=== PATIENT | male | born 1945 | race Caucasian/White ===

== ENCOUNTER 2023-11-05 12:02 | Emergency (ER) | payer BC, SELFPAY ==
[2023-11-05] VITALS (9 sets, daily range): BP systolic 128–148; BP diastolic 69–102; BMI 29.4
[2023-11-05 12:47] LABS: % Eosinophils 1.3 % (0-6); % Immature Granulocytes 1.1 % (0-0.5); % Lymphocytes 22.7 % (20.5-51.1); % Monocytes 9.4 % (1.7-9.3); % Neutrophils 64.5 % (42.2-75.2); Absolute Basophils 0.1 10^3/uL (0-0.2); Absolute Eosinophils 0.1 10^3/uL (0-0.7); Absolute Immature Granulocytes 0.1 10^3/uL (0-0.05); Absolute Lymphocytes 1.4 10^3/uL (1.2-3.4); Absolute Monocytes 0.6 10^3/uL (0.1-0.6); Absolute Neutrophils 4.1 10^3/uL (1.4-6.5); Hematocrit 41.9 % (39.0-52.0); Hemoglobin 14.1 g/dL (13.0-18.0); Mean Corp Hgb Conc. 33.7 g/dL (33.0-37.0); Mean Corpuscular Hgb 29.9 pg (27.0-31.0); Mean Platelet Volume 9.1 fL (7.4-10.4); Nucleated Red Blood Cells % 0 % (-); Platelet Count 241 10^3/uL (130-400); Red Blood Cell Count 4.71 10^6/uL (4.70-6.10); Red Cell Dist. Width 12.8 % (11.5-14.5); White Blood Cell Count 6.3 10^3/uL (4.8-10.8)
[2023-11-05 13:07] LABS: INR 1.13; PT 14.3 Sec (11.4-14.6)
[2023-11-05 13:08] LABS: APTT 27.9 Sec (23.4-35.0)
[2023-11-05 13:11] LABS: ALT (SGPT) 26 U/L (0-50); AST (SGOT) 31 U/L (17-59); Albumin 3.9 g/dl (3.5-5.0); Alkaline Phosphatase 88 U/L (38-126); Blood Urea Nitrogen 15 mg/dl (9-20); Calcium 8.8 mg/dl (8.4-10.2); Carbon Dioxide 25 mmol/L (22-30); Chloride 110 mmol/L (98-107); Glucose 100 mg/dl (70-99); Magnesium 2.2 mg/dl (1.6-2.3); Potassium 4.7 mmol/L (3.5-5.1); Sodium 142 mmol/L (135-145); Total Bilirubin 0.8 mg/dl (0.2-1.3); Total Protein 6.8 g/dl (6.3-8.2); eGFR > 60.00
[2023-11-05 13:19] LABS: Troponin I < 0.012 ng/ml
--- NOTE | 2023-11-05 13:35 | ED.GENMED ---
History of Present Illness
General
Chief Complaint: Cardiac Symptoms
Source: patient
Exam Limitations: none
Time Seen by Provider: 11/05/23 13:01
Nursing documentation reviewed up to this point in time: agreed with
Travel History
Have you had any contact with someone who has COVID-19?: No
Do you have any symptoms of coronavirus? Fever > 100 degrees, chills, cough, shortness of breath, sore throat, loss of taste or smell, muscle aches, or headache?: No
History of Present Illness
History of Present Illness:
78-year-old male presents to the ER for evaluation after AICD fired. Patient reports at 11 AM he was sitting at the meeting felt lightheaded and then apparently passed out but woke up after being shocked. He called his doctor who recommended he
come to the ER. He was brought by son. He presently feels tired but has no other complaint he has a [employer] [employer] AICD he is followed by Dr. Mckeon .
Patient presently arrives awake alert no acute distress.
Patient has a history of cardiomyopathy and as documented does have a dual-chamber ICD placement([facility]) 07/28/2020.
Patient does report however that he did feel lightheaded 2 weeks ago but did not get shocked and did not pass out. He also reports he missed 2 doses of his medication (coreg and entresto ) over the weekend but is not exactly sure which meds he
missed.
Paperwork was sent from cardiology pacemaker was interrogated with visible V-fib. Time to AICD diagnosis was 3.5 sec.
Past History
Past History
ED Past Medical History: HTN (Takes Coreg 12.5 twice a day), Hypercholesterolemia (Takes Cozaar 25 mg daily) and Other (Cardiomyopathy, V. tach with ICD)
ED Past Surgical History: None and Cardiac
Social History
Tobacco: Non-smoker
Alcohol: None
Personal:
Living: with family
Employment: Employed
Family History
Family History: Other
Review of Systems
Review of Systems
Allergies reviewed?: Yes
All Other Systems: ROS reviewed and negative except as documented in HPI and ROS
Constitutional: Reports no symptoms
Respiratory: Denies trouble breathing
Cardiac: Reports syncope
ABD/GI: Reports no symptoms
: Reports no symptoms
Musculoskeletal: Reports no symptoms
Skin: Reports no symptoms
Neurological: Reports no symptoms
Psychiatric: Reports no symptoms
Phy Exam
General Physical Exam
General Presentation: no apparent distress
General age: appears stated age
General Skin: warm and dry
General Habitus: normal
General Mental: alert
General Hydration: appears well hydrated
Cardiovascular Exam
Cardiovascular Exam: bradycardia
Pulmonary Exam
Pulmonary Exam: lungs clear and no respiratory distress
Neurological Exam
Neurological Exam: alert and oriented x3
Musculoskeletal Exam
Musculoskeletal Exam: full ROM
Skin Exam
Skin Exam: normal color and warm/dry
Psychiatric Exam
Psychiatric Exam: normal mood/affect
Course
Orders/Labs/Results
Orders:
Orders
11/05/23 12:11
ECG [Electrocardiogram (*1)] Urgent
Reason for Study: Syncope
Other Reason for Exam: AICD fired
EKG- Treatment ONCE
11/05/23 12:27
Complete Blood Count/With Diff Urgent
Comprehensive Metabolic Panel Urgent
Magnesium Urgent
PT/INR [Prothrombin Time] Urgent
PTT Urgent
Troponin I Urgent
11/05/23 15:24
Add On- LAB Urgent
Tests Added?: magnesium
11/05/23 16:03
Amiodarone [Pacerone] 400 mg PO NOW STA
Abnormal Lab Results
11/05/23
12:27
Abs Immat Gran (auto) 0.1 H 10^3/uL
(0-0.05)
Immature Gran % 1.1 H %
(0-0.5)
Monocytes % 9.4 H %
(1.7-9.3)
Chloride 110 H mmol/L
(98-107)
Glucose 100 H mg/dl
(70-99)
11/05/23 12:27
11/05/23 12:27
Vital Signs
Initial and Last Documented VS:
Initial Vital Signs
Temp Pulse Resp BP Pulse Ox
97.5 F 56 16 148/79 100
11/05/23 12:07 11/05/23 12:07 11/05/23 12:07 11/05/23 12:07 11/05/23 12:07
Last Documented Vital Signs
Temp Pulse Resp BP Pulse Ox
97.5 F 57 14 146/79 99
11/05/23 12:07 11/05/23 16:56 11/05/23 14:30 11/05/23 16:56 11/05/23 14:46
Electric Meter Setter consulted with Physician
Electric Meter Setter consulted with physician?: Yes
Name of Physician Consulted: Genaro
MDM/Problems Addressed
MDM/Problems Addressed:
1525:Patient is a 78-year-old male with history of cardiomyopathy CHF AICD presents after syncopal episode and AICD firing. Pacemaker was interrogated prior to arrival patient with obvious long V-fib. He presented awake alert no acute distress.
Patient has remained in sinus bradycardia in the high 50s here in the ER with no complaints. Labs unremarkable. At this time cardiology nurse practitioner evaluated patient
1600: Patient was evaluated by Dr. Cardona who recommends giving 1 dose of amiodarone 400 mg now and then patient to be discharged on 200 mg twice a day for 1 month then once daily. Dr. Cardona did want additional dose of 200 mg this evening.
Patient was educated to take another dose later tonight
*Critical Care Note
Total Time (30-74mins, 75-104mins- exclusive of procedures): Not Applicable
Patient Management
Discussion with other providers: Shop Supervisor (DR Cardona )
ED Attending Note
-
Portions of this chart may have been created with voice recognition software.� Occasional wrong word or��sound alike� substitutions may have occurred due to the inherent limitations of voice recognition software.
Discharge Plan
Departure
Patient Disposition: Home (Routine Discharge)
Date of Disposition: 11/05/23
Time of Disposition: 17:31
Patient with high blood pressure during this ER visit?: Yes
Condition: Fair
Covid-19: Not Applicable
Discharge Problem:
Ventricular fibrillation
Instructions: BLOOD PRESSURE
Prescriptions:
No Action
carvedilol 12.5 MG tablet
12.5 mg PO BID
coenzyme Q10 [Co Q-10] 100 MG capsule
100 mg PO DAILY
amiodarone [Pacerone] 200 MG tablet
200 mg PO BID Qty: 60 0RF
Rx Instructions:
take amiodarone 200mg twice daily for 4 weeks then decrease to 200mg daily
amiodarone [Pacerone] 200 MG tablet
200 mg PO DAILY Qty: 30 5RF
Rx Instructions:
take amiodarone 200mg twice daily for 4 weeks then decrease to 200mg daily
Referrals:
Lizzie Bird CRNP [Specified Professional Personl] - 12/02/23 11:00 am (You have cardiology follow up with Lizzie Bird on December 01 at 11 am in [address] in the [place]. If you are unable to maker this please call [phone] to reschedule)
Henri Haskins, [Family Provider] -
Karen Mckeon MD [Active] -
Activity Restrictions/Additional Instructions:
You are scheduled for an echo on November 26 at 7:20 AM at [facility]. Please report to central scheduling to register. If you are unable to make this appointment please call [phone] to reschedule.
Start amiodarone as directed. take 200 mg this evening.
These medications were sent to your pharmacy. You will take 200 mg twice a day for 4 weeks then decrease to 200 mg once daily .follow-up with cardiology as scheduled return if any worsening of symptoms.
Interventions
Interventions:
*Risk Screen - Suicide Last Done: 11/05/23 13:48
*General Assessment Last Done: 11/05/23 13:48
*Neglect/Abuse Screening Last Done: 11/05/23 13:48
ED- Fall Risk Assessment Last Done: 11/05/23 13:51
*ED COVID-19 Vaccine History Last Done: 11/05/23 13:48
ED- Pulmonary Assessment Last Done: 11/05/23 14:46
ED- Cardiac Assessment Last Done: 11/05/23 13:50
Discharge Date and Time
Print Language: UKRAINIAN
--- NOTE | 2023-11-05 15:32 | CON.CAR ---
Addendum entered and electronically signed by Faizan Cardona MD 11/05/23 16:32:
patient seen and examined
agree with DANNY Barone's notes and assessment
agree with DANNY Barone's plan
exam:
heent ncat
jvp 6
cor regular
lungs ctab
abd soft nt nd
no ext edema
aao x3
non focal neurologically
Impression:
Presented 11/05/2023 with syncopal episode
Appropriate ICD shock for ventricular tachycardia that progressed into ventricular fibrillation
Nonischemic cardiomyopathy
Nonobstructive coronary artery disease
Syncope
Ventricular tachycardia
s/p dual-chamber [employer] ICD 07/28/2020
Hypertension
Echocardiogram 09/04/2022: ejection fraction 40 to 45%. Mild LVH. Normal RV. Mild MR. Trace AI. Trace TR with PA pressure 27 mmHg.
Echocardiogram 06/28/2021: EF 40 to 45%, global hypokinesis. Stage I DD. PAP 22 mmHg.
Echocardiogram 01/03/2021: EF 35 to 40%, previously 45%. Mild septal hypertrophy. Stage I diastolic dysfunction. Mild MR. PAP 31 mmHg
Cardiac catheterization 07/27/2020 with nonobstructive coronary disease.
Cardiac MRI 07/28/2020 which revealed a small focus of transmural enhancement in the inferior septum suggesting the possibility of possible old scar. Ejection fraction was 35%.
Plan:
-Presented 11/05/2023 with syncopal episode secondary to ventricular tachycardia that progressed into ventricular fibrillation and appropriate ICD shock.
-This was first time patient has received ICD therapy.
-Workup in the emergency department shows unremarkable laboratory findings with normal electrolytes (K+ 4.7, mag 2.2), hgb, renal and kidney function.
-EKG shows sinus bradycardia without ischemic changes. Initial troponin undetectable.
-Admits to forgetting to take his a.m. medication for 2 days on 11/01/2023 and 11/02/2023.
-Patient without any concerning cardiac complaints and denies chest pain, shortness of breath, dizziness or lightheadedness
-Would increase amiodarone to 200 mg twice a day for 4 weeks. Reviewed his device tracings and initiation and PMVT and degenerated to VF with rapid ATP.
-Continue current dose of carvedilol and Entresto
-Last echocardiogram performed in September 2022. Would consider repeating this as outpatient.
-Discussed with patient and his family he should not drive for a minimum of 4 weeks. Can be reassessed as outpatient if no additional ventricular arrhythmias on timing of when resuming driving
Original Note:
Consultation
Consultation Request
Date/Time Consultation Requested: 11/05/2023
Date/Time Consultation Performed: 11/05/2023
Requesting Provider: Leatha Alexander
Performing Provider: Rosemary Barone PA-C for Dr. Faizan Cardona
Reason for Consultation: Ventricular tachycardia/ICD shock
Medical History
-
History of Present Illness:
Patient is a 78-year-old male with past medical history significant for nonischemic cardiomyopathy, nonobstructive coronary artery disease on cardiac catheterization, syncope with finding of ventricular tachycardia maintained on amiodarone, status
post dual-chamber ICD who presents to emergency department 11/05/2023 with witnessed syncopal event secondary to ventricular tachycardia which progressed into ventricular fibrillation requiring ICD shock. He reports he was sitting at a meeting today
and got very agitated then developed lightheadedness and a syncopal episode. Staff members around him reports he slumped over then got jolted and woke up rather quickly following this. He admitted feeling somewhat lethargic and tired initially but
denied associated chest pain shortness of breath, palpitations. He admits that he forgot to take his a.m. medications on Saturday and Saturday. Over the weekend he was very active working in the yard and garden without chest pain or shortness of
breath. Interrogation of his ICD demonstrates ventricular tachycardia that progressed into ventricular fibrillation and was refractory to ATP. He did once he received 1 shock with successful evangelical of sinus rhythm. Workup in the emergency
department shows rather unremarkable laboratory studies with potassium of 4.7, magnesium 2.2. Troponin negative. EKG shows sinus bradycardia. At time of this evaluation patient resting comfortably in bed and denies any cardiac symptoms.
PMH:
Nonischemic cardiomyopathy
Nonobstructive coronary artery disease
Syncope
Ventricular tachycardia
s/p dual-chamber [employer] ICD 07/28/2020
Hypertension
Past Medical History
Past Medical History: Other (See HPI)
Past Surgical History: Cardiac (Dual-chamber [employer] ICD implant 07/27/2020) and Other (Endoscopy 2017)
Social History
Tobacco: Non-Smoker
Alcohol: None
Drug: None
Personal:
Living: With Family
Employment: Employed
Family History
Family History: Other (Father prostate cancer, CAD. Mother stroke, hypertension)
Allergies / Home Medications
Allergy/AdvReac Type Severity Reaction Status Date / Time
codeine Allergy Intermediate confusion Verified 02/06/23 11:11
�Medication �Instructions �Recorded �Confirmed �Type
carvedilol 12.5 mg tablet 12.5 mg PO BID 12/17/15 07/27/20 History
coenzyme Q10 100 mg capsule (Co 100 mg PO DAILY 07/27/20 07/27/20 History
Q-10)
amiodarone 200 mg tablet (Pacerone) 200 mg PO BID #60 tabs 07/29/20 Rx
amiodarone 200 mg tablet (Pacerone) 200 mg PO DAILY #30 tabs 07/29/20 Rx
Review of Systems
-
History Source: Patient
All other systems: Negative unless noted
Physical Exam
Vital Signs
Temp Pulse Resp BP Pulse Ox
97.5 F 53 14 129/69 99
11/05/23 12:07 11/05/23 14:30 11/05/23 14:30 11/05/23 14:00 11/05/23 14:46
GEN: No distress, awake, Ox3
HEENT: supple, anicteric, mmm
LUNGS: CTA, no wheezes/rales
CV: Reg, S1/S2, no murmur, rub or gallop
ABD: soft, BS+, NT/ND
EXT: No edema, clubbing or cyanosis
NEURO: Gross non-focal
SKIN: No rash, warm, dry, pink
Lab Results
11/05/23 12:27
11/05/23 12:27
Troponin I < 0.012 ng/ml 11/05/23 12:27
Impression / Plan
-
PCP: Henri Haskins
Manager Title: Dr. Karen Mckeon
Impression:
Presented 11/05/2023 with syncopal episode
Appropriate ICD shock for ventricular tachycardia that progressed into ventricular fibrillation
Nonischemic cardiomyopathy
Nonobstructive coronary artery disease
Syncope
Ventricular tachycardia
s/p dual-chamber [employer] ICD 07/28/2020
Hypertension
Echocardiogram 09/04/2022: ejection fraction 40 to 45%. Mild LVH. Normal RV. Mild MR. Trace AI. Trace TR with PA pressure 27 mmHg.
Echocardiogram 06/28/2021: EF 40 to 45%, global hypokinesis. Stage I DD. PAP 22 mmHg.
Echocardiogram 01/03/2021: EF 35 to 40%, previously 45%. Mild septal hypertrophy. Stage I diastolic dysfunction. Mild MR. PAP 31 mmHg
Cardiac catheterization 07/27/2020 with nonobstructive coronary disease.
Cardiac MRI 07/28/2020 which revealed a small focus of transmural enhancement in the inferior septum suggesting the possibility of possible old scar. Ejection fraction was 35%.
Plan:
-Presented 11/05/2023 with syncopal episode secondary to ventricular tachycardia that progressed into ventricular fibrillation and appropriate ICD shock.
-This was first time patient has received ICD therapy.
-Workup in the emergency department shows unremarkable laboratory findings with normal electrolytes (K+ 4.7, mag 2.2), hgb, renal and kidney function.
-EKG shows sinus bradycardia without ischemic changes. Initial troponin undetectable.
-Admits to forgetting to take his a.m. medication for 2 days on 11/01/2023 and 11/02/2023.
-Patient without any concerning cardiac complaints and denies chest pain, shortness of breath, dizziness or lightheadedness
-Would increase amiodarone to 200 mg twice a day for 4 weeks.
-Continue current dose of carvedilol and Entresto
-Last echocardiogram performed in September 2022. Would consider repeating this as outpatient.
-Discussed with patient and his family he should not drive for a minimum of 4 weeks. Can be reassessed as outpatient if no additional ventricular arrhythmias on timing of when resuming driving
[facility] 11/05/2023:
Patient is a 78-year-old male with past medical history significant for nonischemic cardiomyopathy, nonobstructive coronary artery disease on cardiac catheterization, syncope with finding of ventricular tachycardia maintained on amiodarone, status
post dual-chamber ICD who presents to emergency department 11/05/2023 with witnessed syncopal event secondary to ventricular tachycardia which progressed into ventricular fibrillation requiring ICD shock. He reports he was sitting at a meeting today
and got very agitated then developed lightheadedness and a syncopal episode. Staff members around him reports he slumped over then got jolted and woke up rather quickly following this. He admitted feeling somewhat lethargic and tired initially but
denied associated chest pain shortness of breath, palpitations. He admits that he forgot to take his a.m. medications on Saturday and Saturday. Over the weekend he was very active working in the yard and garden without chest pain or shortness of
breath. Interrogation of his ICD demonstrates ventricular tachycardia that progressed into ventricular fibrillation and was refractory to ATP. He did once he received 1 shock with successful evangelical of sinus rhythm. Workup in the emergency
department shows rather unremarkable laboratory studies with potassium of 4.7, magnesium 2.2. Troponin negative. EKG shows sinus bradycardia. At time of this evaluation patient resting comfortably in bed and denies any cardiac symptoms.
Data Reviewed
-
EKG: Report Reviewed by me, Discussed with Physician, Discussed with Patient and Discussed with Family
Labs: Labs Reviewed by me, Discussed with Physician, Discussed with Patient and Discussed with Family
Old Records: Reviewed
[2023-11-05] MEDS: PACERONE 400 MG PO (16:56)
== END 2023-11-05 18:25 | disposition home or self-care (01) ==
LOC: EMR 12:02
PROVIDERS: Emergency Medicine; EMERGENCY PHYSICIAN Student in an Organized Health Care Education/Training Program; FAMILY PHYSICIAN Family Medicine
DX: I49.01 Ventricular fibrillation (principal); Z95.810 Presence of automatic (implantable) cardiac defibrillator; I11.0 Hypertensive heart disease with heart failure; I50.9 Heart failure, unspecified; I25.10 Atherosclerotic heart disease of native coronary artery without angina pectoris; I42.8 Other cardiomyopathies; I47.20 Ventricular tachycardia, unspecified; E78.00 Pure hypercholesterolemia, unspecified; Z82.3 Family history of stroke; Z82.49 Family history of ischemic heart disease and other diseases of the circulatory system
CPT/HCPCS: 99283; 80053; 83735; 84484; 85025; 85610; 85730; 93005

== ENCOUNTER → 2023-11-13 14:50 | Outpatient (REF) | payer BC, SELFPAY | LOC: RCS 14:50 | PROVIDERS: ATTENDING PHYSICIAN Internal Medicine Cardiovascular Disease; FAMILY PHYSICIAN Family Medicine | DX: I49.01 Ventricular fibrillation (principal) | CPT/HCPCS: 93306 ==

== ENCOUNTER 2024-03-11 08:18 | Day surgery (SDC) | payer BC, SELFPAY ==
[2024-03-05 10:06] VITALS: BMI 31.0
[2024-03-05 10:43] LABS: % Basophils 0.7 % (0-2); % Eosinophils 1.3 % (0-6); % Immature Granulocytes 1.1 % (0-0.5); % Lymphocytes 18.4 % (20.5-51.1); % Monocytes 8.3 % (1.7-9.3); % Neutrophils 70.2 % (42.2-75.2); Absolute Basophils 0.1 10^3/uL (0-0.2); Absolute Eosinophils 0.1 10^3/uL (0-0.7); Absolute Immature Granulocytes 0.1 10^3/uL (0-0.05); Absolute Lymphocytes 1.3 10^3/uL (1.2-3.4); Absolute Monocytes 0.6 10^3/uL (0.1-0.6); Absolute Neutrophils 4.9 10^3/uL (1.4-6.5); Hematocrit 38.9 % (39.0-52.0); Hemoglobin 13.6 g/dL (13.0-18.0); Mean Corpuscular Hgb 30.1 pg (27.0-31.0); Mean Corpuscular Volume 86.1 fL (80.0-94.0); Mean Platelet Volume 8.9 fL (7.4-10.4); Nucleated Red Blood Cells % 0 % (-); Platelet Count 245 10^3/uL (130-400); Red Blood Cell Count 4.52 10^6/uL (4.70-6.10); Red Cell Dist. Width 12.6 % (11.5-14.5)
[2024-03-05 10:59] LABS: INR 1.04; PT 13.6 Sec (11.4-14.6)
[2024-03-05 11:13] LABS: ALT (SGPT) 29 U/L (0-50); AST (SGOT) 29 U/L (17-59); Albumin 3.9 g/dl (3.5-5.0); Alkaline Phosphatase 85 U/L (38-126); Blood Urea Nitrogen 14 mg/dl (9-20); Calcium 9.1 mg/dl (8.4-10.2); Carbon Dioxide 22 mmol/L (22-30); Chloride 108 mmol/L (98-107); Estimated Creatinine Clearance 77 ml/min; Glucose 104 mg/dl (70-99); Potassium 4.4 mmol/L (3.5-5.1); Sodium 143 mmol/L (135-145); Total Bilirubin 0.7 mg/dl (0.2-1.3); Total Protein 6.7 g/dl (6.3-8.2); eGFR > 60.00
[2024-03-11] VITALS (12 sets, daily range): BP systolic 107–142; BP diastolic 67–82; BMI 31.0
[2024-03-11 12:29] LABS: ACT-LR - POC 295 Seconds (116-155)
[2024-03-11 12:53] LABS: ACT-LR - POC 271 Seconds (116-155)
[2024-03-11 13:41] LABS: ACT-LR - POC 335 Seconds (116-155)
[2024-03-11 14:16] LABS: ACT-LR - POC 208 Seconds (116-155)
[2024-03-11 14:24] LABS: ACT-LR - POC 141 Seconds (116-155)
--- NOTE | 2024-03-11 14:55 | ITS.CL.ABL ---
Enrobing Machine Operator - Ablation
Ablation
Procedure Report:
ELECTROPHYSIOLOGY ABLATION REPORT
Date of Procedure: March 11, 2024
Referring:
Dr Karen Mckeon
Dr Henri Haskins
INDICATION:
Sustained monomorphic VT while on amiodarone and in the setting of noninfarct related cardiomyopathy.
While no sustained VT has been captured on twelve-lead electrocardiogram, review of multiple EKGs available in our systems so rare single PVC suggestive of outflow tract origin.
HISTORY:
Most recently, on 11/05/2023, he sustained syncope secondary to VT which�progressed to VF, treated with appropriate ICD shock.
His ventricular arrhythmia history started in July 2020. He was admitted 07/27/20 after outpatient monitor showed sustained self terminating VT associated with dizziness�
During his hospital stay there were no significant lab abnormalities, ECHO 2020 with LVEF 35-40%, Cardiac catheterization 07/27/2020 with nonobstructive coronary disease.
Cardiac MRI 07/28/2020 small focus of transmural enhancement in the inferior basal septum suggesting the possibility of possible old scar. LVEF 35%.
He underwent implantation of single chamber [employer] ICD 07/28/2020.
Additionally, in�Jul 2020 he was initiated then maintained on�amiodarone 200 mg daily.
Given the recurrent event on November 05, 2023,�Amiodarone increased to� 200 mg twice daily from 11/04-12/05 23, then reduced back to 200 mg daily
Echo 11/13/23 with EF 40-45% with global hypokinesis�(no change from 09/04/22). Mild MR. PAP 24�mmHg.
He presents today for EP study and possible catheter ablation of ventricular tachycardia.
PROCEDURE:
The [employer] medical/[employer] dual chamber ICD was interrogated and found to have normal stable function. VT/VF detections were programmed OFF. Additional programming changes included changing base pacing rate from 60-80 and shortening AV intervals
to more reliably result in paced ventricular complexes.
Sheaths were placed and IV heparin bolus followed by continuous infusion to maintain ACT at 250-350 seconds.
Intracardiac echocardiogram was utilized to assist in catheter positioning/mapping and ablation as well as to monitor for any mechanical injury during the procedure.
A quadripolar mapping catheter was positioned at the right ventricular apex.
Given the location of the MRI abnormality there is concern for substrate abnormality in the area of the the RV/LV crux a decapolar catheter was placed in the prox coronary sinus extending into the middle cardiac vein.
The multipolar mapping catheter was positioned within the LV cavity using a retrograde aortic approach.
Extensive high density electroanatomical three-dimensional voltage map/geometry was collected and created using ZE. This demonstrated no significant voltage for conduction abnormalities within the left ventricle.
Programmed electrical stimulation up to triple extrastimuli at 2 different base paced cycle lengths induced nonsustained monomorphic VT at 440 ms with left bundle inferior axis and precordial transition at lead V3, positive in lead fully positive in
lead I and fully negative in lead aVR. With continued attempts at induction mapping within the left ventricle finds that the left ventricle is late. Additionally mapping at the aortic cusps finds that the aortic cusps are also late. VT morphology
is most consistent with outflow tract and likely right ventricular outflow tract given that the left ventricular outflow tract and aortic cusps are late. Ventricular electrograms on the decapolar catheter at the base of the coronary sinus and
extending into the middle cardiac vein are also late.
Of note, with aggressive programmed electrical stimulation additional pleomorphic nonsustained runs of ventricular tachycardia as well as sustained polymorphic ventricular tachycardia requiring electrical cardioversion could be induced. It is felt
that it is likely that his clinical tachycardia is RVOT origin. Therefore high density electroanatomical mapping using the [employer] grid catheter was performed at the right ventricular outflow tract, but induction remained difficult with mostly short
runs of nonsustained VT. Pace mapping was then attempted. Best pace map is an 87% match at the right ventricular outflow tract leftward and slightly anterior approximately 1 cm below the pulmonic valve. RF application using 4 mm contact sensing
irrigated tip catheter was performed in and around the area of the best pace map. Once this was completed the ablation catheter was moved to the aortic cusps for further pace mapping but pace mapping at the aortic cusps was not as good of a match
as was observed at the right ventricular outflow tract (best aortic cusp pace map is at the right coronary cusp at 72%).
Intracardiac echocardiogram demonstrated stable left ventricular systolic function and no pericardial effusion.
Fluoroscopy demonstrated no fluoroscopic change in the appearance of the right atrial pacing lead in the right ventricular ICD lead
The dual-chamber ICD was interrogated and found to have stable normal function. Reprogramming was performed. Detection was programmed on. Base pacing rate was reprogrammed to 65 ppm and both paced and sensed AV intervals were extended to 300 ms.
Additionally I reprogrammed VT zone ATP extending the number of intervals to detect from 30-40, changing burst cycle length from 80% to 88% and increasing number of stimuli from 10-12.
COMPLICATIONS: None
SUMMARY:
Mapping and ablation of ventricular tachycardia
- Extensive high density mapping of the left ventricle, aortic cusps, right ventricular outflow tract finds no significant voltage abnormalities
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
- Interrogation and reprogramming of dual-chamber ICD
RECOMMENDATIONS:
Maintain amiodarone at 200 mg daily
- While the clinical ventricular tachycardia is likely the RVOT VT, he was also inducible repeatedly for pleomorphic VT and even VF. This along with his background cardiomyopathy favors continuing amiodarone.
Copy to:
Dr Karen Mckeon
Dr Henri Haskins
--- NOTE | 2024-03-11 16:07 | CM ---
Chart reviewed. Patient is independent of ADLS, lives with his in a 2 STH, 1 TARYN, 0 DME. Plan is for the patient to return home. CM to follow
[2024-03-11] MEDS: PACERONE 200 MG PO (19:44)
[2024-03-11] MEDS: COREG 12.5 MG PO (19:44)
--- NOTE | 2024-03-11 21:27 | PTCARENOTE ---
Received patient at shift change. A paced on the monitor, HR in the 60s. Bilateral groin dressings CDI with no evidence of hematoma. Discussed activity restrictions with pt, pt verbalizes understanding. No complaints from pt at this time, call moffett
within reach.
[2024-03-12 03:04] VITALS: BP 96/67
[2024-03-12 04:05] LABS: Blood Urea Nitrogen 12 mg/dl (9-20); Calcium 8.4 mg/dl (8.4-10.2); Carbon Dioxide 25 mmol/L (22-30); Chloride 108 mmol/L (98-107); Estimated Creatinine Clearance 77 ml/min; Glucose 97 mg/dl (70-99); Magnesium 1.9 mg/dl (1.6-2.3); Potassium 4.2 mmol/L (3.5-5.1); Sodium 143 mmol/L (135-145); eGFR > 60.00
[2024-03-12 06:00] VITALS: BMI 30.3
[2024-03-12 06:34] LABS: Hemoglobin 12.7 g/dL (13.0-18.0); Mean Corp Hgb Conc. 34.3 g/dL (33.0-37.0); Mean Corpuscular Hgb 30.1 pg (27.0-31.0); Mean Corpuscular Volume 87.7 fL (80.0-94.0); Mean Platelet Volume 9.5 fL (7.4-10.4); Platelet Count 224 10^3/uL (130-400); Red Blood Cell Count 4.22 10^6/uL (4.70-6.10); White Blood Cell Count 8.7 10^3/uL (4.8-10.8)
[2024-03-12 07:02] VITALS: BP 118/68
[2024-03-12] MEDS: COREG 12.5 MG PO (08:15)
--- NOTE | 2024-03-12 08:38 | PTCARENOTE ---
Assumed care of pt from prev nsg shift AAOx3 w/no c/o CP or SOB. VS stable this AM w/HR in the 60's & BP 118/68. Pt is A-paced on telemetry monitoring. Pt w/bilat groin access sites w/dressings C/D/I w/no signs or symptoms of bleeding or hematoma.
Pt anticipating D/C this AM. Pt w/call moffett within reach & no addtl needs at this time. Plan of care ongoing.
[2024-03-12] MEDS: ENTRESTO 24 MG/26 MG 1 TAB PO (09:44)
--- NOTE | 2024-03-12 09:46 | W.PN.CARDCBS ---
Addendum entered and electronically signed by Henri Mckeon MD 03/12/24 11:09:
Patient seen, interviewed and examined by me.
Well-appearing, no acute distress
Regular rate and rhythm with normal S1 and S2, no S3 no S4. There is a grade 1/6 apical holosystolic murmur and no rubs. PMI is normally placed.
Lungs are clear to auscultation bilaterally without wheezes rales or rhonchi.
Abdomen soft nontender nondistended with normoactive bowel sounds
Extremities show trace pretibial edema bilaterally no clubbing or cyanosis. Bilateral groins without hematoma or bruits
Neurologic exam is grossly nonfocal.
He remains in sinus rhythm on telemetry.
reviewed findings and results from yesterday's EP study and ablation were outlined that we mapped left ventricle, aortic cusps, right ventricular outflow tract and found no significant signal/electrical abnormalities. Induction diagnosed outflow
tract tachycardia. Ventricular tachycardia was self terminating making mapping of VT focus difficult and I relied mostly on pace mapping to identify likely site at the right ventricular outflow tract which we ablated. I discussed with the patient
that the certainty with which I feel I eliminated his clinical tachycardia is not high but certainly possible. I recommended that we continue amiodarone at 200 mg daily as we follow device diagnostics. If there are no further ventricular
arrhythmias over the course of the next 6 months we could consider dropping amiodarone from 200 mg daily to 100 mg daily.
All of his questions have been answered.
I reviewed discharge instructions including activity restrictions.
He is stable for discharge to home today.
Original Note:
Today's Communication / Plan
-
post VT ablation, stable for d/c home
Impression / Plan
-
Primary oil field tester: Dr Karen Mckeon
Primary care physician: Dr Henri Haskins
Impression:
Symptomatic VT/VF
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
ICD 2020
HTN
HLD
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
NICMP
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
Plan:
post ablation feels good
groins stable
tele Apaced
HF continue carvedilol and entresto
During the procedure he was also inducible repeatedly for pleomorphic VT and even VF, we will continue amiodarone 200mg daily
Activity restrictions reviewed
f/u Dr. Garcia 3 mo
stable for d/c home today
Progress Note - Sec Accountant
Subjective
Date of Service: March 12, 2024
denies cp, sob
Objective
Labs:
03/12/24 03:26
03/12/24 03:26
Labs
Hgb 12.7 g/dL (13.0-18.0) L 03/12/24 03:26
Hct 37.0 % (39.0-52.0) L 03/12/24 03:26
Plt Count 224 10^3/uL (130-400) 03/12/24 03:26
PT 13.6 Sec (11.4-14.6) 03/05/24 10:30
INR 1.04 03/05/24 10:30
Sodium 143 mmol/L (135-145) 03/12/24 03:26
Potassium 4.2 mmol/L (3.5-5.1) 03/12/24 03:26
BUN 12 mg/dl (9-20) 03/12/24 03:26
Creatinine 0.8 mg/dL (0.7-1.3) 03/12/24 03:26
Glucose 97 mg/dl (70-99) 03/12/24 03:26
Vital Signs and I&O:
Vital Signs
Temp Pulse Resp BP Pulse Ox
97.8 F 65 18 118/68 97
03/12/24 06:59 03/12/24 09:00 03/12/24 06:59 03/12/24 07:02 03/12/24 07:02
Vital Signs
Temp Pulse Resp BP Pulse Ox
97.8 F 65 18 118/68 97
03/12/24 06:59 03/12/24 09:00 03/12/24 06:59 03/12/24 07:02 03/12/24 07:02
Intake & Output
03/10/24 03/11/24 03/12/24 03/13/24
06:59 06:59 06:59 06:59
Intake Total 740 / 740
Output Total 450 / 450
Balance 290 / 290
Physical Exam
Physical Exam
NAD, AOX3
S1, S2, RRR
CTAB, non labored
SNTND bsx4
b/l femoral sites c/d/i no HT, soft
--- NOTE | 2024-03-12 10:22 | PTCARENOTE ---
Discussed D/C instructions w/pt & spouse. Pt's IV line & media monitor D/C'd. Pt left w/personal belongings including cell phone, laptop & 2 chargers. Pt taken out via wheelchair by volunteer. Driven home by granddaughter.
--- NOTE | 2024-03-12 12:35 | W.DS.TRANS ---
DC Summary - Telephone Collector
-
Discharge Instructions:
Sleep Apnea Risk Intermediate
Discharge Diagnosis/Procedures VT post ablation
Diet Low Sodium
Driving Restrictions No driving for 24 hours
Instructions:
Stand-Alone Forms: DC Instructions- Cath/EP Lab
Changes to Home Medications: No
Discharge Medications:
DC Medications w/original date entered in [employer]
carvedilol 12.5 mg tablet 12.5 mg PO BID 12/17/15
coenzyme Q10 100 mg capsule (Co Q-10) 100 mg PO DAILY 07/27/20
amiodarone 200 mg tablet (Pacerone) 200 mg PO QPM #1 tab 03/12/24
sacubitril 24 mg-valsartan 26 mg tablet (Entresto) 1 tab PO BID 03/12/24
Home Medication Changes
Pending Results: No
== END 2024-03-12 10:25 | disposition home or self-care (01) ==
LOC: CATH 08:18
PROVIDERS: Nurse Practitioner Adult Health; ATTENDING PHYSICIAN Internal Medicine Cardiovascular Disease; FAMILY PHYSICIAN Family Medicine; OTHER PHYSICIAN Internal Medicine Cardiovascular Disease
DX: I47.20 Ventricular tachycardia, unspecified (principal); I49.01 Ventricular fibrillation; I11.0 Hypertensive heart disease with heart failure; I50.22 Chronic systolic (congestive) heart failure; E78.5 Hyperlipidemia, unspecified; I42.8 Other cardiomyopathies
CPT/HCPCS: C1732; C1894; C1730; C1769; C1892; C1759; 36415; 80048; 80053; 83735; 85025; 85027; 85347; 85610; 86850; 86900; 86901; 93005; 93654

== ENCOUNTER 2024-09-28 20:14 | Emergency (ER) | payer BC, SELFPAY ==
[2024-09-28 20:16] VITALS: BP 133/88
[2024-09-28 20:55] LABS: % Basophils 0.6 % (0-2); % Eosinophils 1.1 % (0-6); % Immature Granulocytes 0.9 % (0-0.5); % Lymphocytes 24.7 % (20.5-51.1); % Monocytes 11.5 % (1.7-9.3); % Neutrophils 61.2 % (42.2-75.2); Absolute Eosinophils 0.1 10^3/uL (0-0.7); Absolute Immature Granulocytes 0.1 10^3/uL (0-0.05); Absolute Lymphocytes 1.7 10^3/uL (1.2-3.4); Absolute Monocytes 0.8 10^3/uL (0.1-0.6); Absolute Neutrophils 4.3 10^3/uL (1.4-6.5); Hematocrit 40.4 % (39.0-52.0); Hemoglobin 13.8 g/dL (13.0-18.0); Mean Corp Hgb Conc. 34.2 g/dL (33.0-37.0); Mean Corpuscular Hgb 30.3 pg (27.0-31.0); Mean Corpuscular Volume 88.8 fL (80.0-94.0); Mean Platelet Volume 9.1 fL (7.4-10.4); Nucleated Red Blood Cells % 0 % (-); Platelet Count 255 10^3/uL (130-400); Red Blood Cell Count 4.55 10^6/uL (4.70-6.10); Red Cell Dist. Width 12.8 % (11.5-14.5); White Blood Cell Count 7.1 10^3/uL (4.8-10.8)
[2024-09-28 21:07] LABS: ALT (SGPT) 20 U/L (0-50); AST (SGOT) 21 U/L (17-59); Albumin 4.2 g/dl (3.5-5.0); Alkaline Phosphatase 84 U/L (38-126); Blood Urea Nitrogen 19 mg/dl (9-20); Calcium 9.4 mg/dl (8.4-10.2); Carbon Dioxide 26 mmol/L (22-30); Chloride 108 mmol/L (98-107); Glucose 91 mg/dl (70-99); Potassium 4.9 mmol/L (3.5-5.1); Sodium 142 mmol/L (135-145); Total Bilirubin 0.7 mg/dl (0.2-1.3); eGFR > 60.00
[2024-09-28 21:16] LABS: Troponin I < 0.012 ng/ml
[2024-09-28 22:33] VITALS: BP 131/86
--- NOTE | 2024-09-28 22:39 | ED.GENMED ---
History of Present Illness
General
Chief Complaint: Dizziness
Source: patient
Exam Limitations: none
Time Seen by Provider: 09/28/24 22:19
Nursing documentation reviewed up to this point in time: agreed with
History of Present Illness
History of Present Illness:
79-year-old male with past medical history as documented presents to the emergency room for evaluation of lightheadedness. Patient was working outside in the garden for a few hours today. When he finished working he was feeling lightheaded and has
been intermittently dizzy/lightheaded since. He did drink some water after ER arrival and says he feels a bit better now. He does admit to poor hydration today. He denies any associated chest pain or shortness of breath. He denies any
palpitations. He denies any headache. He denies any abdominal or flank pain. Denies any focal weakness or numbness or any other complaints. He follows with Dr. Mckeon for cardiology.
Past History
Past History
ED Past Medical History: HTN (Takes Coreg 12.5 twice a day), Hypercholesterolemia (Takes Cozaar 25 mg daily) and Other (Cardiomyopathy, V. tach with ICD)
ED Past Surgical History: None and Cardiac
Social History
Tobacco: Non-smoker
Alcohol: None
Personal:
Living: with family
Employment: Employed
Family History
Family History: Other
Review of Systems
Review of Systems
All Other Systems: ROS reviewed and negative except as documented in HPI and ROS
Constitutional: Denies fever
Respiratory: Denies trouble breathing
Cardiac: Denies chest pain
ABD/GI: Denies abdominal pain
: Denies flank pain
Neurological: Reports dizzy; Denies headache, weakness or numbness
Phy Exam
Physical Exam
Physical Exam:
General: Awake, alert, oriented x3; no acute distress
Head: Normocephalic, atraumatic
Eyes: Conjunctiva normal, EOMI, pupils equal round reactive to light bilaterally
Throat: Airway intact, handling secretions
Neck: Trachea midline, supple without meningismus
Lungs: Clear to auscultation bilaterally, no wheezing, rales, rhonchi
Heart: Regular rate and rhythm, no murmurs, gallops, or rubs; AICD in place
Abd: Soft, non distended, nontender with no palpable masses
Neuro: Cranial nerves intact 2 through 12, speech fluid without dysarthria or aphasia, no limb ataxia, motor and sensory intact in all extremities
Extremities: No edema in extremities, equal pulses in all extremities
Scores
Heart Failure Risk
Heart Failure Risk Score: Not Applicable
Heart Score for Chest Pain Patients
STEMI patient?: Not applicable
Withdrawal Assessment of Alcohol
Withdrawal Assessment Completed?: Not applicable
Course
Orders/Labs/Results
Orders:
Orders
09/28/24 20:17
ECG [Electrocardiogram (*1)] Urgent
Reason for Study: Vertigo / Dizzy
EKG- Treatment ONCE
09/28/24 20:30
Complete Blood Count/With Diff Urgent
Comprehensive Metabolic Panel Urgent
Troponin I Urgent
09/28/24 22:20
Interrogate Pacemaker- Treatment ONCE
Abnormal Lab Results
09/28/24
20:30
RBC 4.55 L 10^6/uL
(4.70-6.10)
Abs Immat Gran (auto) 0.1 H 10^3/uL
(0-0.05)
Absolute Monos (auto) 0.8 H 10^3/uL
(0.1-0.6)
Immature Gran % 0.9 H %
(0-0.5)
Monocytes % 11.5 H %
(1.7-9.3)
Chloride 108 H mmol/L
(98-107)
09/28/24 20:30
09/28/24 20:30
Vital Signs
Initial and Last Documented VS:
Initial Vital Signs
Temp Pulse Resp BP Pulse Ox
36.6 C 65 16 133/88 100
09/28/24 20:16 09/28/24 20:16 09/28/24 20:16 09/28/24 20:16 09/28/24 20:16
Last Documented Vital Signs
Temp Pulse Resp BP Pulse Ox
36.6 C 65 18 131/86 98
09/28/24 20:16 09/28/24 22:33 09/28/24 22:33 09/28/24 22:33 09/28/24 22:33
MDM/Problems Addressed
Differential Diagnosis Includes:
Dehydration, electrolyte derangement, dysrhythmia
MDM/Problems Addressed:
79-year-old male presents for evaluation of intermittent dizziness since working outside in the heat today. Vitals and exam as above. Suspect likely mild dehydration. He feels better after drinking some water here. His EKG shows a paced rhythm.
Labs sent in triage including CBC which shows no anemia, CMP which shows no clinically significant abnormalities. His troponin is undetectable�denies any chest pain at any point in time to me. Will interrogate device. If no events noted stable
for discharge advised to increase hydration when working outside.
Reviewed device interrogation�patient had 1 episode of NSVT lasted for 8 seconds on 09/21/2024. No other events noted, specifically no events today. Suspect likely some mild dehydration. Patient remains well-appearing and asymptomatic on
reassessment with normal vital signs. Stable for discharge. Spoke about return precautions all questions answered.
Chronic conditions affecting care:
Cardiac history
*Pulse Oximetry
Patient hypoxic: no
*EKG
Interpreted by ED Provider?: Yes
Heart Rate: 65
Rate: normal
Rhythm: other (Atrial paced)
*Critical Care Note
Total Time (30-74mins, 75-104mins- exclusive of procedures): Not Applicable
Data Reviewed
Review of Other/Old Records Reveals: Labs and Records
Source: patient, records and family
ED Attending Note
-
Portions of this chart may have been created with voice recognition software.� Occasional wrong word or��sound alike� substitutions may have occurred due to the inherent limitations of voice recognition software.
Discharge Plan
Departure
Patient Disposition: Home (Routine Discharge)
Date of Disposition: 09/28/24
Time of Disposition: 23:34
Patient with high blood pressure during this ER visit?: No
Discharge Problem:
Lightheadedness
Instructions: Dehydration in adults - ED discharge instructions
Prescriptions:
No Action
carvedilol 12.5 MG tablet
12.5 mg PO BID
coenzyme Q10 [Co Q-10] 100 MG capsule
100 mg PO DAILY
Entresto 24-26 mg Tablet
1 tab PO BID
amiodarone [Pacerone] 200 MG tablet
200 mg PO QPM Qty: 1 0RF
Activity Restrictions/Additional Instructions:
Thank you for visiting the Emergency Department at [facility].
1. Please schedule a follow up appointment as directed. Call first thing tomorrow morning to make an appointment.
2. If indicated, please take your medications as instructed and indicated on discharge paperwork.
3. If any of your symptoms do not improve, or persist, or become more severe within 6-12 hours, please return to the emergency department for further care.
4. Please return to the emergency department if you develop a headache, neck pain/stiffness, fever greater than 100.4F, chest pain, shortness of breath, persistent nausea, vomiting, slurred speech, difficulty walking, numbness/tingling, weakness,
signs of infection or any other symptoms that are worrisome to you.
Please call [phone] if you have any questions.
Interventions
Interventions:
*Risk Screen - Suicide Last Done: 09/28/24 20:16
*General Assessment Last Done: 09/28/24 20:16
*Neglect/Abuse Screening Last Done: 09/28/24 22:35
*ED- Fall Risk Assessment Last Done: 09/28/24 22:35
ED- Neurological Assessment Last Done: 09/28/24 22:34
Discharge Date and Time
Print Language: ROMANSH
== END 2024-09-28 23:56 | disposition home or self-care (01) ==
LOC: EMR 20:14
PROVIDERS: Emergency Medicine; EMERGENCY PHYSICIAN Emergency Medicine; FAMILY PHYSICIAN Family Medicine
DX: R42 Dizziness and giddiness (principal); E78.00 Pure hypercholesterolemia, unspecified; I10 Essential (primary) hypertension; Z95.0 Presence of cardiac pacemaker
CPT/HCPCS: 93288; 99284; 80053; 84484; 85025; 93005

== ENCOUNTER → 2025-03-09 14:49 | Outpatient (REF) | payer BC, SELFPAY | LOC: RCS 14:49 | PROVIDERS: ATTENDING PHYSICIAN Internal Medicine Cardiovascular Disease; FAMILY PHYSICIAN Family Medicine | DX: I49.01 Ventricular fibrillation (principal); I50.22 Chronic systolic (congestive) heart failure | CPT/HCPCS: 93306 ==